=== PATIENT | female | born 1995 | race Two or more races ===

== ENCOUNTER 2017-12-08 19:24 | Emergency (ER) | payer MEDICAID, OTHER, SELFPAY ==
[~2017-12-08] VITALS: Ht 160 cm; Wt 140.0 kg
[2017-12-08] MEDS ORDERED: NALOXONE 0.4 MG/ML, 1ML ONE (19:36)
[2017-12-08] MEDS ORDERED: NALOXONE 0.4 MG/ML, 1ML IVPush ONE (20:00)
[2017-12-08] MEDS ORDERED: PLEASE ENTER ALLERGIES MC SCH (20:00)
[2017-12-08] MEDS ORDERED: PLEASE ENTER HEIGHT AND WEIGHT MC SCH (20:00)
[2017-12-08] MEDS ORDERED: SODIUM CHLORIDE 0.9% 1,000ML IVBOLUS ONE (20:00)
[2017-12-08] MEDS ORDERED: SODIUM CHLORIDE FLUSH 10ML SYR IVF ONE (20:00)
[2017-12-08 20:05] LABS: BASOPHILS # (AUTO) 0.04 x10^3/uL (0-0.1); BASOPHILS % (AUTO) 0 % (0-1); EOSINOPHILS # (AUTO) 0.04 x10^3/uL (0-0.4); EOSINOPHILS % (AUTO) 0 % (1-7); LYMPHOCYTES # (AUTO) 2.18 x10^3/uL (1-3.4); LYMPHOCYTES % (AUTO) 19 % (22-44); MD NO; MEAN CORPUSCULAR HEMOGLOBIN 31.2 pg (27.0-34.8); MEAN CORPUSCULAR HGB CONC 34.3 g/dL (32.4-35.8); MEAN CORPUSCULAR VOLUME 90.8 fL (80-100); MEAN PLATELET VOLUME 9.7 fL (7.4-10.4); MONOCYTES # (AUTO) 0.75 x10^3/uL (0.2-0.8); MONOCYTES % (AUTO) 6 % (2-9); NEUTROPHILS # (AUTO) 8.71 x10^3/uL (1.8-6.8); NEUTROPHILS % (AUTO) 74 % (42-75); PLATELET COUNT 194 x10^3/uL (130-400); RED BLOOD COUNT 4.23 x10^6/uL (3.82-5.3); RED CELL DISTRIBUTION WIDTH 12.1 % (9.6-15.2)
[2017-12-08 20:16] LABS: ALBUMIN 3.5 g/dL (3.4-5.0); ANION GAP 8 mmol/L (5-15); CALCIUM 8.5 mg/dL (8.5-10.1); CHLORIDE 112 mmol/L (98-107); CREATININE 0.72 mg/dL (0.55-1.02)
[2017-12-08 20:20] LABS: SALICYLATE LEVEL < 1.7 mg/dL (2.8-20.0)
[2017-12-08 20:21] LABS: ACETAMINOPHEN < 2 mcg/mL (10-30)
[2017-12-08 22:35] LABS: MICROSCOPIC NOT IND
[2017-12-08 22:36] LABS: CULTURE INDICATED? NO
[2017-12-08 22:54] LABS: AMPHETAMINE SCREEN, URINE Negative (Negative); BARBITURATE SCREEN, URINE Negative (Negative); BENZODIAZEPINE SCREEN, URINE Negative (Negative); CANNABINOID SCREEN, URINE Negative (Negative); COCAINE SCREEN, URINE Negative (Negative); METHADONE SCREEN, URINE Negative (Negative); OPIATE SCREEN, URINE Negative (Negative)
[2017-12-09 00:07] VITALS: BP 115/67
== END 2017-12-09 00:10 | disposition home or self-care (01) ==
LOC: ED 23:59
DX: R41.82 Altered mental status, unspecified (principal); F32.9 Major depressive disorder, single episode, unspecified; Z79.899 Other long term (current) drug therapy
CPT/HCPCS: 36415; 70450; 80048; 80307; 80329; 81003; 82040; 84703; 85025; 93005; 96361; 96374; 99285; J2310; J7030; G0480